=== PATIENT | male | born 1995 | race Caucasian/White ===

== ENCOUNTER 2017-05-29 00:50 | Emergency (ER) | payer SELFPAY ==
[~2017-05-29] VITALS: Ht 180.3 cm; Wt 87.8 kg
[~2017-05-29 00:50] MED LIST: ACID REDUCER M150 MG PO; AMOXICILLIN500 MG PO; CLARITHROMYC500 MG PO; OMEPRAZOLE20 MG PO; PERCOCET 5/325M1 TAB OR; PRILOSEC40 MG PO; ZOFRAN ODT4 MG PO; ZOFRAN ODT8 MG SL
[2017-05-29 01:55] LABS: URINE BILIRUBIN - DIPSTICK NEGATIVE (NEGATIVE); URINE CLARITY CLEAR; URINE COLOR YELLOW; URINE GLUCOSE - DIPSTICK NEGATIVE (NEGATIVE); URINE KETONE Negative (NEGATIVE); URINE PH 6.5 (4.5-8.0)
[2017-05-29 01:56] LABS: URINE BLOOD DIPSTICK NEGATIVE (NEGATIVE); URINE LEUK ESTERASE NEGATIVE (NEGATIVE); URINE NITRITE - DIPSTICK NEGATIVE (Negative); URINE PROTEIN - DIPSTICK NEGATIVE (NEG-TRACE); URINE UROBILINOGEN - DIPSTICK 0.2 E.U./dL (0.2)
[2017-05-29 01:56] LABS: HEMATOCRIT 42.3 % (39.0-50.0); HEMOGLOBIN 14.3 g/dl (14.0-18.0); IMMATURE GRANULOCYTES 0.5 % (0.0-1.0); MEAN CELL VOLUME 90.8 fL CALC (80.0-100.0); MEAN CORPUSCULAR HGB 30.7 pG CALC (26.0-32.0); MEAN CORPUSCULAR HGB CONC 33.8 g/L CALC (32.0-36.0); RED BLOOD COUNT 4.66 mill/uL (4.70-6.10)
[2017-05-29 01:57] LABS: COCAINE NEGATIVE (NEGATIVE); TETRAHYDROCANNABIONOL POSITIVE (NEGATIVE)
[2017-05-29 01:57] LABS: NEUT# 7.12 thou/uL (1.82-7.42)
[2017-05-29 01:58] LABS: BARBITURATES NEGATIVE (NEGATIVE); METHADONE NEGATIVE (NEGATIVE); OXCYCODONE NEGATIVE (NEGATIVE); TRICYLIC ANTIDEPRESSANTS NEGATIVE (NEGATIVE)
[2017-05-29 02:08] LABS: ALBUMIN 4.3 g/dL (3.2-5.0); ALKALINE PHOSPHATASE 61 u/l (38-126); ANION GAP 14 (6-22 (CALC)); BILIRUBIN, TOTAL 0.4 mg/dL (0.0-1.4); BUN 16 mg/dL (9-20); BUN/CREATININE RATIO 12 (12-20 (CALC)); CALCIUM 8.7 mg/dL (8.4-10.2); CARBON DIOXIDE 27 mmol/l (22-30); CHLORIDE 101 mmol/l (95-108); CREATININE 1.3 mg/dL (0.7-1.3); GFR > 60 ML/MIN (>=60 (CALC)); GFR FOR AFR.AMER. > 60 ML/MIN (>=60 (CALC)); GLUCOSE 114 mg/dL (75-110); POTASSIUM 3.3 mmol/l (3.5-5.1); SGOT/AST 23 u/l (17-59); SGPT/ALT 31 u/l (21-72); SODIUM 138 mmol/l (137-146); TOTAL PROTEIN 6.9 g/dL (6.3-8.2)
[2017-05-29 02:16] LABS: MYOGLOBIN 22 ng/mL (0 - 121)
[2017-05-29 03:40] VITALS: BP 108/54
== END 2017-05-29 03:40 | disposition home or self-care (01) | DRG 310 ==
LOC: ED 00:50
PROVIDERS: Emergency Medicine
DX: R00.2 Palpitations (principal); F17.210 Nicotine dependence, cigarettes, uncomplicated; R42 Dizziness and giddiness